=== PATIENT | male | born 1995 | race Caucasian/White ===

== ENCOUNTER 2019-06-15 20:41 | Emergency (ER) | payer OTHER ==
[~2019-06-15] VITALS: Ht 177.8 cm; Wt 95.0 kg
[2019-06-15] MEDS ORDERED: haloperidol lactate 5mg/ml inj IM ONE (21:35)
[2019-06-15] MEDS ORDERED: LORazepam 2 mg/ml vial IM ONE (21:35)
[2019-06-15] MEDS ORDERED: diphenhydrAMINE 50 mg/ml inj IM ONE (21:35)
[2019-06-15 21:50] LABS: BASOPHILS # (AUTO) 0.1 X10'3 (0-0.2); BASOPHILS % (AUTO) 0.5 % (0-1); EOSINOPHILS # (AUTO) 0.2 X10'3 (0-0.9); EOSINOPHILS % (AUTO) 1.3 % (0-6); HEMATOCRIT 45.1 % (42.0-52.0); HEMOGLOBIN 15.6 g/dl (14.0-17.9); LYMPHOCYTES # (AUTO) 2.5 X10'3 (1.1-4.8); LYMPHOCYTES % (AUTO) 18.3 % (21-51); MEAN CORPUSCULAR HEMOGLOBIN 29.5 PG (27.0-31.0); MEAN CORPUSCULAR HGB CONC 34.6 g/dL (33.0-36.5); MEAN CORPUSCULAR VOLUME 85.3 FL (78-98); MONOCYTES # (AUTO) 1.6 X10'3 (0-0.9); MONOCYTES % (AUTO) 11.6 % (2-12); NEUTROPHILS # (AUTO) 9.1 X10'3 (1.8-7.7); NEUTROPHILS % (AUTO) 68.3 % (42-75); PLATELET COUNT 429 X10'3 (140-440); RED BLOOD COUNT 5.29 X10'6 (4.70-6.10); RED CELL DISTRIBUTION WIDTH 13.7 % (11.5-14.5); WHITE BLOOD COUNT 13.4 X10'3 (4.5-11.0)
[2019-06-15 22:05] LABS: ALANINE AMINOTRANSFERASE 30 U/L (12-78); ALBUMIN/GLOBULIN RATIO 0.9 (1.1-1.5); ALKALINE PHOSPHATASE 94 IU/L (46-116); ANION GAP 14 (8-16); ASPARTATE AMINO TRANSFERASE 39 U/L (10-37); BILIRUBIN,TOTAL 0.8 MG/DL (0.1-1.0); BLOOD UREA NITROGEN 8 MG/DL (7-18); BUN/CREATININE RATIO 7.3 (5.4-32.0); CALCIUM 9.3 MG/DL (8.5-10.1); CHLORIDE 100 MMOL/L (99-107); GLUCOSE 112 MG/DL (70-104); POTASSIUM 3.2 MMOL/L (3.5-5.1); SODIUM 139 MMOL/L (135-145); TOTAL CARBON DIOXIDE 25.3 MMOL/L (24-32); TOTAL PROTEIN 8.3 G/DL (6.4-8.2); eGFR 82 ML/MIN
[2019-06-15 22:14] LABS: ETHANOL < 0.010 GM/DL (0.0-0.010)
[2019-06-15] MEDS ORDERED: potassium Cl 20 mEq SR tablet PO STA (22:17)
--- NOTE | 2019-06-15 23:53 | NUR ---
PT UNABLE TO ANSWER QUESTIONS, COULD NOT COMPLETE [place] [facility]IC[facility] ASSESSMENT
[2019-06-16 00:13] LABS: URINE AMPHETAMINE SCREEN POSITIVE (Neg); URINE BARBITUATE SCREEN NEGATIVE (Neg); URINE BENZODIAZEPINES SCREEN NEGATIVE (Neg); URINE CANNABINOID SCREEN POSITIVE (Neg); URINE COCAINE SCREEN NEGATIVE (Neg); URINE METHADONE SCREEN NEGATIVE (Neg); URINE OPIATE SCREEN NEGATIVE (Neg); URINE PHENCYCLIDINE SCREEN NEGATIVE (Neg)
[2019-06-16 00:29] LABS: CLARITY,URINE CLEAR (Clear); COLOR,URINE YELLOW (Yellow); GLUCOSE, URINE NEGATIVE (Neg); KETONES,URINE 15 mg/dl (Neg); LEUKOCYTE ESTERASE ,URINE NEGATIVE (Neg); NITRITES, URINE NEGATIVE (Neg); OCCULT BLOOD,URINE NEGATIVE (Neg); PROTEIN,URINE NEGATIVE (Neg); UROBILINOGEN,URINE 0.2 E.U/dL (0.2-1.0)
[2019-06-16 00:30] LABS: UA COLLECTION TYPE STRAIGHT CATH
--- NOTE | 2019-06-16 01:30 | NUR ---
[facility] accompanied by staff, transferred to bed was staff zaida [phone]. PT continues to sleep through bed trasfer. PT is still incoherent. Respirations WNL.
--- NOTE | 2019-06-16 03:26 | NUR ---
Pt is asleep on back, respirations WNL, no signs of distress observed.
[2019-06-16 05:30] VITALS: BP 118/53
--- NOTE | 2019-06-16 05:50 | NUR ---
PT's vital signs WNL. PT is sleeping, no signs of distress observed
--- NOTE | 2019-06-16 06:40 | NUR ---
Patient sleeping supine. No distress observed. Continue to monitor.
--- NOTE | 2019-06-16 07:40 | NUR ---
Packet faxed to [facility] tad office
--- NOTE | 2019-06-16 08:25 | NUR ---
Patient continue to sleep. No distress observed. Continue to monitor.
--- NOTE | 2019-06-16 10:20 | NUR ---
Patient sleeping on left side. No distress observed. Continue to monitor. Patient in line of site.
--- NOTE | 2019-06-16 11:55 | NUR ---
Patient sleeping on left side. No distress observed. Continue to monitor.
--- NOTE | 2019-06-16 13:10 | NUR ---
Patient sitting up and eating. No distress observed. Continue to monitor.
--- NOTE | 2019-06-16 13:59 | NUR ---
break note:patient asleepa this time.We will monitor.
--- NOTE | 2019-06-16 15:05 | NUR ---
Patient awake and alert and assessed by [facility]. No distress observed. Continue to monitor.
[2019-06-17] MEDS ORDERED: PRED20TA PO (18:19)
== END 2019-06-16 16:20 ==
LOC: ER 20:41
DX: F23 Brief psychotic disorder (principal); E87.6 Hypokalemia; F12.90 Cannabis use, unspecified, uncomplicated; F15.10 Other stimulant abuse, uncomplicated
CPT/HCPCS: 36415; 80053; 80305; 80320; 81003; 84443; 85025; 96372; 99284; J1200; J1630; J2060

== ENCOUNTER 2019-06-17 17:54 | Emergency (ER) | payer OTHER ==
[~2019-06-17] VITALS: Ht 177.8 cm; Wt 95.5 kg
[2019-06-17] MEDS ORDERED: PRED20TA PO (18:19)
[2019-06-17] MEDS ORDERED: predniSONE 20 mg tablet PO ONE (18:20)
[2019-06-17 18:30] VITALS: BP 162/94
== END 2019-06-17 18:31 | disposition home or self-care (01) ==
LOC: ER 17:55
DX: T78.40XA Allergy, unspecified, initial encounter (principal); R06.02 Shortness of breath; F15.90 Other stimulant use, unspecified, uncomplicated; F12.90 Cannabis use, unspecified, uncomplicated; F17.200 Nicotine dependence, unspecified, uncomplicated; Z59.0 Homelessness; X58.XXXA Exposure to other specified factors, initial encounter
CPT/HCPCS: 93005; 99283; J7512